=== PATIENT | male | born 1970 | race Caucasian/White ===

== ENCOUNTER 2017-04-30 09:53 | Emergency (ER) | payer OTHER ==
[2017-04-30] MEDS ORDERED: CEPHALEXIN 500 MG CAP PO ONE ×2 (10:27)
[2017-04-30] MEDS ORDERED: TDAP ADULT 0.5 ML INJ (BOOSTRIX) IM ONE ×2 (10:27)
--- NOTE | 2017-04-30 10:27 | EDPHY ---
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 No paresthesia. Full sensation. He brought with him a piece of tissue which was avulsed. PHYSICAL EXAM (Prior to examination, patient consented to physical exam, hands were washed and my usual and customary physical exam procedures followed) 1) GENERAL: Well-developed, well-nourished, alert and oriented. Appears to be in no acute distress. 2) HEAD: Normocephalic 3) HEENT: sclera anicteric 4) LUNGS: Breathing comfortably. 5) SKIN: On the patient's left 3rd digit distal phalanx he has visible osseous fragment, avulsed tissue. He has a small piece of tissue which was avulsed. This tissue is nonviable 6) MUSCULOSKELETAL: Flexor and extensor function at the MCP PIP DIP intact 7) NEUROLOGIC: Full sensation distally Smoking Status: Never smoked Constitutional: Initial Vital Signs Temperature (C) 36.6 C 04/30/17 10:09 Heart Rate 58 L 04/30/17 10:09 Respiratory Rate 16 04/30/17 10:09 Blood Pressure 144/83 H 04/30/17 10:09 O2 Sat (%) 98 04/30/17 10:09 O2 Delivery Mode Room Air Allergies/Adverse Reactions: No Known Allergies Allergy (Unverified 04/30/17 10:09) Home Medications: Medication Instructions Recorded NK [No Known Home Meds] 04/30/17 MDM/Departure - MDM Imaging Results: Imaging Impressions Finger X-Ray 04/30/17 10:27 Impression: Bony fragmentation of the distal tuft of the left third finger. Images reviewed by myself Medications Given: Discontinued Medications Cephalexin HCl (Keflex) 500 mg PO EDNOW ONE PRN Reason: Protocol Stop: 04/30/17 10:28 Last Admin: 04/30/17 10:41 Dose: 500 mg Diphtheria/Tetanus/Acell Pertussis (Boostrix) 0.5 ml IM .ONCE ONE Stop: 04/30/17 10:28 Last Admin: 04/30/17 10:42 Dose: 0.5 ml Cefazolin Sodium/Dextrose (Ancef 2 Gm (Premix)) 100 mls @ 200 mls/hr IV EDNOW ONE PRN Reason: Protocol Stop: 04/30/17 14:12 Last Admin: 04/30/17 13:49 Dose: 100 mls ED Course/Re-evaluation: I reviewed the patient his x-ray showing a tuft fracture of the 3rd digit. There is insufficient tissue to reapproximate skin edges. Phone consultation with Dr. Bj Berger at 11:47 a.m. requested patient remain NPO he will come to the ER to evaluate possibly perform rongeur bony take down 1:20 p.m.: Dr. Berger in the ER to evaluate patient. 1:55 p.m.: Dr. Bj Berger has evaluated and treated the patient, written prescriptions for antibiotics and analgesia and will follow up with the patient in the office. Patient given usual and customary wound precautions instructions.Care of patient under supervision of [secondary] supervising physician Dr Baig with whom I discussed care. - Depart Disposition: Home, Routine, Self-Care Clinical Impression: Avulsion of skin of finger Qualifiers: Encounter type: initial encounter Qualified Code(s): S61.209A - Unspecified open wound of unspecified finger without damage to nail, initial encounter Condition: Good Instructions: Skin Avulsion (ED) Additional Instructions: Return to the ER if you develop redness, swelling, discharge, warmth to the wound, red streaks going up your arm , or any other symptoms that concern you. Referrals: Bj Berger MD [Medical Doctor] - 5-7 days, call for appt.
[2017-04-30] MEDS ORDERED: ceFAZolin 2 GM/DEXTROSE 100 ML IV ONE ×2 (13:43)
[2017-04-30 14:30] VITALS: BP 145/75; PULSE 69; RESP 18; TEMP 98.6; O2SAT 95
--- NOTE | 2017-04-30 15:00 | GOP ---
[f rep st] OPERATIVE REPORT DATE OF OPERATION: 04/30/2017 SURGEON: Bj Berger MD PREOPERATIVE DIAGNOSIS: Partial amputation, left 3rd finger, with macerated laceration and nail bed injury. 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 His finger had soft tissue loss over the distal phalanx. He comes in with the small skin flap. DESCRIPTION OF PROCEDURE: The patient's finger was prepped. A digital nerve block was performed. H e underwent debridement of several smaller bone fragments remaining in the soft tissues. The nail wa s then removed by elevating it with a [place] elevator. We subsequently shortened down the remaining b one underneath the nail matrix a couple millimeters. The eponychial nail fold was then repaired with a 6-0 Vicryl suture. Thorough lavage was performed. The skin was closed with a 6-0 Vicryl suture. The stent was placed underneath the eponychial nail fold. The patient then had a sterile compressio n dressing applied. He tolerated procedure well. He is going to be transferred home. He had been administered 2 g IV Ancef while in the emergency room. He was administered a tetanus moe ster. He is discharged home with [place] 5/325 one to two p.o. q.4 hours p.r.n. and Keflex 500 mg 1 ta b p.o. q.6 hours x7 days. He will follow up with Dr. Berger in 12 days. DIAGNOSIS: Left 3rd finger, partial amputation with open fracture distal phalanx and nail bed injury . PAST MEDICAL HISTORY: ALLERGIES: None. MEDS: None. REVIEW OF SYSTEMS: Negative. PREVIOUS SURGERY: None. HABITS: Smoking history: None. Alcohol use: Minimal. EXAM: EXTREMITIES: The patient's left middle finger has a macerated open wound. It involves an amp utation through the distal portion of the distal phalanx. A portion of the bone is missing. Portion of soft tissue is missing. Portion of the nail bed is missing. He has remaining nail of approximat [place] 40%. He has volar sensation. There was a macerated flap of tissue volarly. /[id number]/MODL
== END 2017-04-30 14:35 | disposition home or self-care (01) ==
PROC: 0X6T0Z3 Detachment at Left Ring Finger, Low, Open Approach (ICD-10-PCS; principal; 2017-04-30)
DX: S68.125A Partial traumatic metacarpophalangeal amputation of left ring finger, initial encounter (principal); W31.89XA Contact with other specified machinery, initial encounter; Y99.8 Other external cause status; Y93.89 Activity, other specified; Z23 Encounter for immunization
CPT/HCPCS: 96365; J0690